=== PATIENT | male | born 1960 | race Two or more races ===

== ENCOUNTER 2021-09-05 20:28 | Emergency (ER) | payer OTHER ==
[~2021-09-05] VITALS: Ht 172.7 cm; Wt 79.4 kg
[2021-09-05] MEDS ORDERED: CLONAZEPAM0.5 MG (20:40)
[2021-09-05] MEDS ORDERED: LOSARTAN POTASS50 MG (20:40)
[2021-09-06] MEDS ORDERED: LEVSIN0.125 MG PO (01:31)
[2021-09-06] MEDS ORDERED: ACETAMINOPHEN500 M2 PO (01:31)
[2021-09-06] MEDS ORDERED: INTESTINEX680 M1 PO (01:31)
[2021-09-06] MEDS ORDERED: PEPCID AC20 MG PO (01:31)
[2021-09-06] MEDS ORDERED: METRONIDAZOLE500 MG PO (01:31)
[2021-09-06] MEDS ORDERED: CIPRO500 MG PO (01:31)
== END 2021-09-06 01:37 | disposition home or self-care (01) ==
LOC: ER 20:28
DX: K57.32 Diverticulitis of large intestine without perforation or abscess without bleeding (principal); R10.32 Left lower quadrant pain

== ENCOUNTER 2021-09-06 23:05 | Emergency (ER) | payer OTHER ==
[~2021-09-06] VITALS: Ht 172.7 cm; Wt 79.4 kg
[~2021-09-06 23:05] MED LIST: ACETAMINOPHEN500 M2 PO; CIPRO500 MG PO; CLONAZEPAM0.5 MG; INTESTINEX680 M1 PO; LEVSIN0.125 MG PO; LOSARTAN POTASS50 MG; METRONIDAZOLE500 MG PO; PEPCID AC20 MG PO
== END 2021-09-07 01:28 | disposition home or self-care (01) ==
LOC: ER 23:05
DX: R10.31 Right lower quadrant pain (principal); R10.32 Left lower quadrant pain; K57.92 Diverticulitis of intestine, part unspecified, without perforation or abscess without bleeding; I10 Essential (primary) hypertension; Z88.8 Allergy status to other drugs, medicaments and biological substances; Z88.6 Allergy status to analgesic agent; Z91.013 Allergy to seafood

== ENCOUNTER 2022-01-04 23:32 | Inpatient (IN) | payer OTHER ==
[~2022-01-04] VITALS: Ht 172.7 cm; Wt 79.4 kg
[2022-01-10] MEDS ORDERED: INTESTINEX680 M1 PO (13:14)
[2022-01-10] MEDS ORDERED: AMOX-CLAV 875-1 EAC1 PO (13:14)
== END 2022-01-10 14:38 | disposition home or self-care (01) | DRG 392 ==
LOC: ER 23:32 → SEC-K 01-05 08:34 → MEDI 01-06 00:54 → MEDJ 01-07 08:59
PROVIDERS: ADMIT Internal Medicine; ATTEND Internal Medicine
PROC: BW21YZZ Computerized Tomography (CT Scan) of Abdomen and Pelvis using Other Contrast (ICD-10-PCS; principal; 2022-01-05)
DX: K57.32 Diverticulitis of large intestine without perforation or abscess without bleeding (principal); R10.32 Left lower quadrant pain; K58.9 Irritable bowel syndrome, unspecified; N40.0 Benign prostatic hyperplasia without lower urinary tract symptoms; I10 Essential (primary) hypertension; Z20.822 Contact with and (suspected) exposure to COVID-19

== ENCOUNTER 2022-01-28 19:30 | Emergency (ER) | payer OTHER ==
[~2022-01-28] VITALS: Ht 172.7 cm; Wt 79.4 kg
[~2022-01-28 19:30] MED LIST changes: +AMOX-CLAV 875-1 EAC1 PO
== END 2022-01-28 23:51 | disposition home or self-care (01) ==
LOC: ER
DX: S55.20 Unspecified injury of vein at forearm level (principal); X58.XXXA Exposure to other specified factors, initial encounter; Y93.9 Activity, unspecified; Y92.9 Unspecified place or not applicable; Y99.9 Unspecified external cause status; I10 Essential (primary) hypertension; Z88.8 Allergy status to other drugs, medicaments and biological substances; Z88.6 Allergy status to analgesic agent; Z91.013 Allergy to seafood

== ENCOUNTER 2024-04-11 18:21 | Emergency (ER) | payer OTHER ==
[~2024-04-11] VITALS: Ht 172.7 cm; Wt 86.2 kg
[2024-04-11] MEDS ORDERED: TORADOL60 MG IM (19:05)
[2024-04-11] MEDS ORDERED: DIOVAN40 MG PO (19:05)
[2024-04-11] MEDS ORDERED: TAMS0.4C PO (19:05)
[2024-04-11 19:48] LABS: HEMATOCRIT 41.7 % (39.0-48.0); HEMOGLOBIN 14.2 g/dL (13-16.00); MEAN CELL VOLUME 89.6 fL (80.0-100.00); MEAN CORPUSCULAR HEMOGLOBIN 30.6 pg (27.00-32.0); MEAN CORPUSCULAR HGB CONC 34.2 g/dl (32.0-36.0); PLATELET COUNT 260 K/uL (150-450); RED BLOOD COUNT 4.65 M/uL (4.00-6.00); RED CELL DISTRIBUTION WIDTH 13.3 % (11.5-14.5)
[2024-04-11 19:59] LABS: URINE APPEARANCE Clear; URINE BILIRRUBIN Negative (NEGATIVE); URINE COLOR Yellow; URINE GLUCOSE Negative (NEGATIVE); URINE KETONE Negative (NEGATIVE); URINE LEUKOCYTE Negative; URINE NITRATE Negative; URINE PROTEIN Negative (NEGATIVE); URINE UROBILINOGEN 0.2 E.U./dl
[2024-04-11 20:03] LABS: URINE RBC 35.4 uL (0.0-20.8)
[2024-04-11 20:06] LABS: URINE BACTERIA 2.5 uL (0.0-1933); URINE BLOOD Trace; URINE EPITHELIAL CELLS 0.4 uL (0.0-38.8); URINE WBC 0.3 uL (0.0-23.2)
[2024-04-11] MEDS ORDERED: KETOROLAC TROMETHAMINE 30 MG VIAL IV ONE (20:15)
[2024-04-11 20:22] LABS: CALCIUM 9.4 mg/dL (8.5-10.1); CREATININE SERUM 1.12 mg/dL (0.70-1.30); GFR 66.43; POTASSIUM 4.79 mEq/L (3.5-5.1)
[2024-04-11] MEDS ORDERED: KETOROLAC TROMETHAMINE 60 MG VIAL IM ONE (23:15)
[2024-04-11] MEDS ORDERED: FAMOTIDINE/PF 20 MG in 0.9 % SODIUM CHLORIDE 8 ML IV PUSH STA (23:42)
[2024-04-12] MEDS ORDERED: LEVSIN/SL0.125 MG SL (01:45)
== END 2024-04-12 02:06 ==
LOC: ER 18:22
PROVIDERS: Emergency Medicine
DX: R10.9 Unspecified abdominal pain (principal); K57.30 Diverticulosis of large intestine without perforation or abscess without bleeding; Z91.013 Allergy to seafood; Z88.6 Allergy status to analgesic agent; F32.89 Other specified depressive episodes; I10 Essential (primary) hypertension
CPT/HCPCS: 36415; 74177; 96365; 99284; J1885; J3490; Q9965

== ENCOUNTER 2025-01-07 11:27 | Inpatient (IN) | payer OTHER ==
[~2025-01-07] VITALS: Ht 172.7 cm; Wt 80.7 kg
[~2025-01-07 11:27] MED LIST changes: +DIOVAN40 MG PO; +LEVSIN/SL0.125 MG SL; +TAMS0.4C PO; +TORADOL60 MG IM
[2025-01-07] MEDS ORDERED: VALSARTAN80 MG PO (13:56)
--- NOTE | 2025-01-07 14:00 | NUR ---
PTE REFIERE QUE TIENE DOLOR TRISH EN EL ABDOMEN. SE MIDEN S/V LOS MISMOS ESTABLES.
[2025-01-07] MEDS ORDERED: 0.9 % SODIUM CHLORIDE 500 ML IV ONE (14:30)
[2025-01-07] MEDS ORDERED: KETOROLAC TROMETHAMINE 30 MG VIAL ONE (14:38)
[2025-01-07] MEDS ORDERED: FAMOTIDINE/PF 20 MG/2 ML VIAL ONE (14:38)
[2025-01-07] MEDS ORDERED: ONDANSETRON HCL 2 MG/ML VIAL ONE (14:38)
[2025-01-07] MEDS ORDERED: KETOROLAC TROMETHAMINE 30 MG VIAL IV ONE (14:45)
[2025-01-07] MEDS ORDERED: ONDANSETRON HCL 2 MG/ML VIAL IV ONE (14:45)
[2025-01-07] MEDS ORDERED: FAMOTIDINE/PF 20 MG/2 ML VIAL IV ONE (14:45)
--- NOTE | 2025-01-07 15:15 | NUR ---
SE ORIENTA A PTE SOBRE TX MEDICO EL MISMO INDICA ENTENDER Y ACEPTAR SE DENILSON MUESTRAS DE LAB [facility] SE ADMINISTRAN MEDICAMENTOS ADRIEN ORDEN MEDICA BAJO MEDIDAS ASEPTICAS.
[2025-01-07 15:23] LABS: BASO % 0.5 % (0.1-1.2); EOS # 0.18 (0.04-0.54); EOS % 2.3 % (0.7-7.0); LYMPH # 1.45 (1.18-3.74); LYMPH % 18.9 % (19.3-53.1); MEAN PLATELET VOLUME 9.80 fl (9.4-12.4); MONO # 0.54 (0.24-0.82); MONO % 7.0 % (4.7-12.5); NEUT # 5.45 (1.56-6.13); NEUT % 71.0 % (34.0-71.1); RED CELL DISTRIBUTION WIDTH 12.5 % (11.6-14.4)
[2025-01-07] MEDS ORDERED: BARIUM SULFATE 450 ML ORAL.SUSP PO ONE (15:42)
[2025-01-07 15:45] LABS: ALT/SGPT 29.0 U/L (12-78); AST/SGOT 21.0 U/L (15-37); BILIRUBIN TOTAL 0.67 mg/dL (0.3-1.2); BUN CREA RATIO 13.0 (7.0-25.0); CREATININE SERUM 1.05 mg/dL (0.70-1.30); GFR 71.34; GLOBULINA 3.5 G/DL (2.4-3.5); GLUCOSE FASTING 103.0 mg/dL (65-100); OSMOLALITY SERUM 286.0 MOSM/KG (275-295)
[2025-01-07] MEDS ORDERED: DIATRIZOATE MEGLUMINE, SODIUM 30 ML BOTTLE ONE (15:45)
[2025-01-07 16:21] LABS: URINE APPEARANCE Clear; URINE BILIRRUBIN Negative (NEGATIVE); URINE BLOOD Small; URINE COLOR Yellow; URINE GLUCOSE Negative (NEGATIVE); URINE KETONE Negative (NEGATIVE); URINE LEUKOCYTE Negative; URINE NITRATE Negative; URINE PROTEIN Negative (NEGATIVE); URINE UROBILINOGEN 0.2 E.U./dl
[2025-01-07 16:25] LABS: URINE RBC 29.0 uL (0.0-20.8)
[2025-01-07 16:26] LABS: URINE BACTERIA 1.2 uL (0.0-1933); URINE CAST 0.29 uL (0.0-1.40); URINE EPITHELIAL CELLS 1.2 uL (0.0-38.8); URINE WBC 0.4 uL (0.0-23.2)
[2025-01-07] MEDS ORDERED: CIPROFLOXACIN IN 5 % DEXTROSE 400 MG/200 ML PIGGYBAG IV ONE ×2 (21:00→21:14)
[2025-01-07] MEDS ORDERED: METRONIDAZOLE/SODIUM CHLORIDE 500 MG/100 ML PIGGYBACK IV ONE ×2 (21:00→21:14)
[2025-01-07] MEDS ORDERED: 0.9 % SODIUM CHLORIDE 1,000 ML IV SCH (21:00)
[2025-01-07] MEDS ORDERED: FAMOTIDINE/PF 20 MG in 0.9 % SODIUM CHLORIDE 8 ML IV PUSH SCH (21:01)
[2025-01-07] MEDS ORDERED: ENALAPRILAT DIHYDRATE 1.25 MG/ML VIAL IV PRN (21:15)
[2025-01-07] MEDS ORDERED: ONDANSETRON HCL 4 MG in 0.9 % SODIUM CHLORIDE 50 ML IV PRN (21:15)
[2025-01-07] MEDS ORDERED: KETOROLAC TROMETHAMINE 15 MG VIAL IV ONE (22:00)
[2025-01-08] MEDS ORDERED: PIPERACILLIN/TAZOBACTAM SODIUM 3.375 GM in DEXTROSE 5 % IN WATER 100 ML IV SCH
[2025-01-08 02:08] VITALS: BP 128/76; O2SAT 98
[2025-01-08 02:17] VITALS: BP 113/77; O2SAT 100
[2025-01-08 08:15] LABS: INR 1.05
[2025-01-08] MEDS ORDERED: ENOXAPARIN SODIUM 40 MG/0.4 ML SYRINGE SUBCUTANEO SCH (09:00)
[2025-01-08 09:01] VITALS: BP 108/70; O2SAT 97
[2025-01-08 17:24] VITALS: BP 141/88; O2SAT 98
[2025-01-09 01:46] VITALS: BP 121/72; O2SAT 100
[2025-01-09 06:11] LABS: BASO % 1.0 % (0.1-1.2); EOS # 0.29 (0.04-0.54); EOS % 4.9 % (0.7-7.0); LYMPH # 1.45 (1.18-3.74); LYMPH % 24.6 % (19.3-53.1); MEAN PLATELET VOLUME 10.10 fl (9.4-12.4); MONO # 0.56 (0.24-0.82); MONO % 9.5 % (4.7-12.5); NEUT # 3.52 (1.56-6.13); NEUT % 59.7 % (34.0-71.1); RED CELL DISTRIBUTION WIDTH 12.3 % (11.6-14.4)
[2025-01-09 07:10] LABS: ALT/SGPT 22.0 U/L (12-78); AST/SGOT 14.0 U/L (15-37); BILIRUBIN TOTAL 0.66 mg/dL (0.3-1.2); BUN CREA RATIO 9.0 (7.0-25.0); CREATININE SERUM 1.07 mg/dL (0.70-1.30); GFR 69.8; GLOBULINA 2.4 G/DL (2.4-3.5); GLUCOSE FASTING 72.0 mg/dL (65-100); OSMOLALITY SERUM 284.0 MOSM/KG (275-295)
[2025-01-09 08:42] VITALS: BP 123/81; O2SAT 98
[2025-01-09 17:19] VITALS: BP 131/88; O2SAT 97
[2025-01-10] VITALS: BP 139/79; O2SAT 98
[2025-01-10 09:11] VITALS: BP 133/82; O2SAT 97
[2025-01-10 17:29] VITALS: BP 133/88; O2SAT 95
[2025-01-10 17:30] VITALS: BP 113/71; BP 133/71; O2SAT 97
[2025-01-10] MEDS ORDERED: MEROPENEM 500 MG/VIAL VIAL IV SCH (20:00)
[2025-01-11 00:57] VITALS: BP 119/72; O2SAT 100
[2025-01-11] MEDS ORDERED: TAMSULOSIN HCL 0.4 MG CAP PO SCH (09:00)
[2025-01-11] MEDS ORDERED: CIPRO500 MG PO (09:42)
[2025-01-11] MEDS ORDERED: INTESTINEX680 M1 PO (09:43)
[2025-01-11] MEDS ORDERED: METRONIDAZOLE500 MG PO (09:43)
== END 2025-01-11 12:47 | disposition home or self-care (01) | DRG 392 ==
LOC: ER 11:38 → SURH 21:04
PROVIDERS: Emergency Medicine; General Practice; Internal Medicine Infectious Disease; ADMIT Colon & Rectal Surgery; ATTEND Colon & Rectal Surgery
PROC: BW21ZZZ Computerized Tomography (CT Scan) of Abdomen and Pelvis (ICD-10-PCS; principal; 2025-01-07)
DX: K57.92 Diverticulitis of intestine, part unspecified, without perforation or abscess without bleeding (principal); I10 Essential (primary) hypertension; E78.49 Other hyperlipidemia; K58.9 Irritable bowel syndrome, unspecified

== ENCOUNTER 2025-06-08 17:16 | Emergency (ER) | payer OTHER ==
[~2025-06-08] VITALS: Ht 175.3 cm; Wt 81.6 kg
[~2025-06-08 17:16] MED LIST changes: +VALSARTAN80 MG PO
[2025-06-08] MEDS ORDERED: ONDANSETRON HCL 4 MG in 0.9 % SODIUM CHLORIDE 50 ML IV ONE (18:00)
[2025-06-08] MEDS ORDERED: HYOSCYAMINE SULFATE 0.125 MG TAB.SUBL PO ONE (18:00)
[2025-06-08] MEDS ORDERED: 0.9 % SODIUM CHLORIDE 1,000 ML IV ONE (18:00)
[2025-06-08] MEDS ORDERED: FAMOTIDINE/PF 20 MG in 0.9 % SODIUM CHLORIDE 8 ML IV PUSH ONE (18:00)
[2025-06-08] MEDS ORDERED: KETOROLAC TROMETHAMINE 30 MG VIAL IU ONE (18:00)
[2025-06-08] MEDS ORDERED: HYOSCYAMINE SULFATE 0.125 MG TAB.SUBL ONE (18:03)
[2025-06-08] MEDS ORDERED: KETOROLAC TROMETHAMINE 30 MG VIAL ONE (18:03)
[2025-06-08] MEDS ORDERED: ONDANSETRON HCL 2 MG/ML VIAL ONE (18:03)
[2025-06-08] MEDS ORDERED: FAMOTIDINE/PF 20 MG/2 ML VIAL ONE (18:03)
[2025-06-08 19:22] LABS: BASO % 1.0 % (0.1-1.2); EOS # 0.24 (0.04-0.54); EOS % 3.0 % (0.7-7.0); LYMPH # 1.96 (1.18-3.74); LYMPH % 24.7 % (19.3-53.1); MEAN PLATELET VOLUME 9.50 fl (9.4-12.4); MONO # 0.67 (0.24-0.82); MONO % 8.5 % (4.7-12.5); NEUT # 4.94 (1.56-6.13); NEUT % 62.4 % (34.0-71.1); RED CELL DISTRIBUTION WIDTH 12.2 % (11.6-14.4)
[2025-06-08 19:24] LABS: ERYTHROCYTE SEDIMENTATION RATE 5 mm/hr (0-20)
[2025-06-08 19:31] LABS: URINE APPEARANCE Clear; URINE BILIRRUBIN Negative (NEGATIVE); URINE BLOOD Small; URINE COLOR Yellow; URINE GLUCOSE Negative (NEGATIVE); URINE KETONE Negative (NEGATIVE); URINE LEUKOCYTE Negative; URINE NITRATE Negative; URINE PROTEIN Negative (NEGATIVE); URINE UROBILINOGEN 0.2 E.U./dl
[2025-06-08 19:32] LABS: URINE RBC 38.6 uL (0.0-20.8)
[2025-06-08 19:35] LABS: URINE BACTERIA 3.4 uL (0.0-1933); URINE CAST 0.00 uL (0.0-1.40); URINE EPITHELIAL CELLS 0.7 uL (0.0-38.8); URINE WBC 1.2 uL (0.0-23.2)
[2025-06-08 19:46] LABS: INR 0.98
[2025-06-08 19:52] LABS: ALT/SGPT 37.0 U/L (12-78); AST/SGOT 21.0 U/L (15-37); BILIRUBIN TOTAL 0.55 mg/dL (0.3-1.2); BUN CREA RATIO 21.0 (7.0-25.0); CREATININE SERUM 1.19 mg/dL (0.70-1.30); GFR 61.74; GLOBULINA 3.1 G/DL (2.4-3.5); GLUCOSE FASTING 105.0 mg/dL (65-100); OSMOLALITY SERUM 284.0 MOSM/KG (275-295)
[2025-06-08] MEDS ORDERED: CIPRO500 MG PO (20:52)
[2025-06-08] MEDS ORDERED: METRONIDAZOLE500 MG PO (20:52)
[2025-06-08] MEDS ORDERED: PEPCID AC20 MG PO (20:52)
[2025-06-08] MEDS ORDERED: LEVSIN/SL0.125 MG SL (20:52)
[2025-06-08] MEDS ORDERED: INTESTINEX680 M1 PO (20:52)
== END 2025-06-08 21:51 | disposition home or self-care (01) ==
LOC: ER 17:17
PROVIDERS: General Practice
DX: K57.92 Diverticulitis of intestine, part unspecified, without perforation or abscess without bleeding (principal); R10.9 Unspecified abdominal pain; R11.0 Nausea; R50.9 Fever, unspecified; Z88.6 Allergy status to analgesic agent; Z91.013 Allergy to seafood
CPT/HCPCS: 36415; 74176; 96365; 96366; 99284; J1885; J2405; J3490; J7030